=== PATIENT | male | born 1950 | race Caucasian/White ===

== ENCOUNTER 2017-01-06 23:11 | Emergency (ER) | payer OTHER, BC ==
[~2017-01-06] VITALS: Ht 175.3 cm; Wt 130.4 kg
[~2017-01-06 23:11] MED LIST: ADVAIR 250/501 DISK IH; Combivent IH; DELTASONE20 MG PO; FLOMAX0.4 MG PO; GLUCOPHAGE500 MG PO; METFORMIN HCL1000 M1 PO; METFORMIN HCL500 M1 PO; METFORMIN HCL500 M2 PO; PREDNISONE10 MG PO; PROAIR HFA8.5 GM IH; Pravachol PO; SIMVASTATIN40 MG PO; SPIRIVA RESPIMAT4 GM IH; ZITHROMAX500 MG PO; ZOCOR40 MG PO; Zithromax PO; Zocor PO
[2017-01-07 00:08] LABS: POINT-OF-CARE METER ID UU13113778
[2017-01-07 00:47] LABS: BASOPHIL COUNT 0.1 K/uL (0-0.1); EOSINOPHIL (%) 0.9 % (0-5); EOSINOPHIL COUNT 0.1 K/uL (0-0.3); HEMATOCRIT 50.6 % (38.0-50.0); IMMATURE GRANULOCYTE (%) 1.1 % (0.0-0.7); IMMATURE GRANULOCYTE COUNT 0.2 K/uL; INSTRUMENT ABS NEUTROPHIL CT 10.4 K/uL; LYMPHOCYTE COUNT 1.7 K/uL (1.0-2.8); MCH 27.2 PG (29.0-34.0); MCHC 30.6 G/DL (30.0-36.0); MCV 88.9 FL (86-99); MEAN PLAT.VOLUME 8.9 uM^3 (9.0-12.4); MONOCYTE (%) 6.5 % (3-12); MONOCYTE COUNT 0.9 K/uL (0-0.8); NEUTROPHIL COUNT 10.4 K/uL (1.8-6.4); PLATELET COUNT 227 K/uL (156-360); RBC DIS.WIDTH-CV 15.3 % (11.8-14.6); RBC DIS.WIDTH-SD 49.7 % (39-53); RED BLOOD COUNT 5.69 M/uL (4.00-5.50); WHITE BLOOD COUNT 13.3 K/uL (4.1-10.2)
[2017-01-07 00:55] LABS: CHLORIDE 101 mEq/L (99-109); POTASSIUM 4.2 mEq/L (3.7-5.4); SODIUM 140 mEq/L (136-147)
[2017-01-07 00:58] LABS: GLUCOSE 183 mg/dL (70-99)
[2017-01-07 00:59] LABS: ANION GAP 11 MEQ/L (2-14)
[2017-01-07 01:00] LABS: TOTAL BILIRUBIN 0.3 mg/dL (0.0-1.0)
[2017-01-07 01:01] LABS: ADD MIUA? YES; BILIRUBIN NEGATIVE; BLOOD LARGE; COLOR YELLOW ((YELLOW)); GLUCOSE (STRIP) NEGATIVE; KETONES 5; LEUKOCYTES NEGATIVE; NITRITE NEGATIVE; PROTEIN (STRIP) 30; SPECIFIC GRAVITY 1.018 (1.000-1.030); UROBILINOGEN 0.2 MG/DL (0.2-1.0)
[2017-01-07 01:01] LABS: ALKALINE PHOSPHATASE 101 IU/L (3-129); GFR ESTIMATE (CALCULATED) > 59 mL/min/
[2017-01-07 01:02] LABS: UREA NITROGEN (BUN) 20 mg/dL (9-23)
[2017-01-07 01:10] LABS: BACTERIA NONE SEEN /HPF; EPITHELIAL CELLS RARE /HPF; MUCUS TRACE /LPF; RED BLOOD CELLS TNTC /HPF (0-5); UCUL ADDED? YES; WHITE BLOOD CELLS 0-5 /HPF (0-5)
[2017-01-07] MEDS ORDERED: TORADOL10 MG PO (02:27)
[2017-01-07] MEDS ORDERED: PERCOCET 5/31 TABLET PO (02:29)
[2017-01-07] MEDS ORDERED: ZOFRAN4 MG PO (02:29)
[2017-01-07 02:57] VITALS: BP 144/80
== END 2017-01-07 02:57 | disposition home or self-care (01) ==
LOC: EME 23:11
PROVIDERS: Emergency Medicine
DX: N20.0 Calculus of kidney (principal); K80.20 Calculus of gallbladder without cholecystitis without obstruction; K57.30 Diverticulosis of large intestine without perforation or abscess without bleeding; E11.9 Type 2 diabetes mellitus without complications; Z79.84 Long term (current) use of oral hypoglycemic drugs; E78.5 Hyperlipidemia, unspecified; F17.200 Nicotine dependence, unspecified, uncomplicated
CPT/HCPCS: 74176; 80053; 81003; 82948; 85025; 87086; J1885; J2405; J7030

== ENCOUNTER → 2017-01-12 | Outpatient (CLI) | payer MEDICARE, BC ==
[~2017-01-12] MED LIST changes: +PERCOCET 5/31 TABLET PO; +TORADOL10 MG PO; +ZOFRAN4 MG PO
== END | disposition home or self-care (01) ==
LOC: CDC 12:00
DX: Z01.810 Encounter for preprocedural cardiovascular examination (principal); I49.1 Atrial premature depolarization; R94.31 Abnormal electrocardiogram [ECG] [EKG]
CPT/HCPCS: 93000